=== PATIENT | female | born 1955 | race Caucasian/White ===

== ENCOUNTER → 2017-11-05 16:08 | Outpatient (CLI) | payer BC, SELFPAY ==
--- NOTE | 2017-11-05 | DI.RAD.S_ITS ---
PROCEDURE: XR KNEE RT 3V INDICATIONS: RIGHT KNEE PAIN AND SWELLING TECHNIQUE: 3 views of the knee were acquired. COMPARISON: None. FINDINGS: Bones: No fractures or dislocations. No suspicious bony lesions. Marginal bone spurs over the posterior patella and medial joint margin indicate degenerative joint disease. Soft tissues: No joint effusion. No suspicious soft tissue calcifications. IMPRESSION: Early degenerative joint disease. No acute bony abnormality. Dictated by: Clay Julian M.D. on 11/05/2017 at 16:52 Approved by: Clay Julian M.D. on 11/05/2017 at 16:54
== END ==
PROVIDERS: Family Provider Family Medicine; PCP Family Medicine; Visit Provider Family Medicine
DX: M17.11 Unilateral primary osteoarthritis, right knee (principal); M25.561 Pain in right knee
CPT/HCPCS: 73562

== ENCOUNTER → 2018-05-04 10:09 | Outpatient (CLI) | payer BC, SELFPAY ==
--- NOTE | 2018-05-04 08:30 | DI.MG.S_ITS ---
Patient Name: MICKY JIMENEZ date: 1955 Sex: F Attending Physician: Eris Indications: Date: 05/04/2018 10:19 At the request of: MELISA GOMEZ Procedure: MM screening mammo BI BILATERAL DIGITAL SCREENING MAMMOGRAM 3D/2D WITH CAD: 05/04/2018 CLINICAL: Routine screening. Comparison is made to exams dated: 03/24/2017 mammogram, 03/04/2016 mammogram, and 02/28/2015 mammogram - [facility]. There are scattered fibroglandular elements in both breasts. Current study was also evaluated with a Computer Aided Detection (CAD) system. There are benign calcifications in both breasts. No significant masses, calcifications, or other findings are seen in either breast. There has been no significant interval change. IMPRESSION: There is no mammographic evidence of malignancy. A 1 year screening mammogram is recommended. This exam was interpreted at Station ID: [id number]. NOTE: For mammograms, a report in lay terms will be sent to the patient. Approximately 15% of breast malignancies will not be visualized mammographically. In the management of a palpable breast mass, a negative mammogram must not discourage biopsy of a clinically suspicious lesion. Electronically Signed By: Chirag pelletier/janak:05/04/2018 22:37:59 letter sent: Normal Exam ACR BI-RADS Category 2: Benign Finding(s) 3342F
== END ==
PROVIDERS: Family Provider Family Medicine; PCP Family Medicine; Visit Provider Family Medicine
DX: Z12.31 Encounter for screening mammogram for malignant neoplasm of breast (principal)
CPT/HCPCS: 77063; 77067

== ENCOUNTER → 2019-05-07 09:19 | Outpatient (CLI) | payer BC, SELFPAY ==
--- NOTE | 2019-05-07 | DI.MG.S_ITS ---
BILATERAL DIGITAL SCREENING MAMMOGRAM 3D/2D WITH CAD: 05/07/2019 CLINICAL: Routine screening. Comparison is made to exams dated: 05/04/2018 mammogram, 03/24/2017 mammogram, and 03/04/2016 mammogram - . There are scattered fibroglandular elements in both breasts. Current study was also evaluated with a Computer Aided Detection (CAD) system. There are benign calcifications in both breasts. No significant masses, calcifications, or other findings are seen in either breast. There has been no significant interval change. IMPRESSION: There is no mammographic evidence of malignancy. A 1 year screening mammogram is recommended. This exam was interpreted at Station ID: [id number]. NOTE: For mammograms, a report in lay terms will be sent to the patient. Approximately 15% of breast malignancies will not be visualized mammographically. In the management of a palpable breast mass, a negative mammogram must not discourage biopsy of a clinically suspicious lesion. Electronically Signed By: Chirag pelletier/janak:05/09/2019 13:53:05 letter sent: Normal Exam ACR BI-RADS Category 2: Benign Finding(s) 3342F
== END ==
PROVIDERS: Family Provider Family Medicine; PCP Family Medicine; Visit Provider Family Medicine
DX: Z12.31 Encounter for screening mammogram for malignant neoplasm of breast (principal)
CPT/HCPCS: 77063; 77067

== ENCOUNTER 2019-12-15 16:05 | Emergency (ER) | payer BC, SELFPAY ==
[2019-12-15 16:17] VITALS: BP 126/96; PULSE 60; RESP 12; TEMP 36.2; O2SAT 96; BMI 35.7
--- NOTE | 2019-12-15 16:22 | DI.RAD.S_ITS ---
PROCEDURE: XR ANKLE RT MIN 3V INDICATIONS: right ankle pain, rolled couple days ago TECHNIQUE: 3 views of the ankle were acquired. COMPARISON: None. FINDINGS: Bones: No fractures or dislocations. Ankle mortise is normally aligned. No suspicious bony lesions. Soft tissues: No tibiotalar joint effusion. Achilles tendon appears normal. IMPRESSION: No trauma found. Dictated by: Bam Parham M.D. on 12/15/2019 at 16:38 Approved by: Bam Parham M.D. on 12/15/2019 at 16:40
--- NOTE | 2019-12-15 19:33 | ED.UPPEXIN ---
HPI - Extremity Injury (Upper) <THERESE Sanchez - Last Filed: 12/15/19 19:39> General Chief Complaint: Extremity Injury, Upper Stated Complaint: right foot pain, swelling. Fall 2 days ago Time Seen by Provider: 12/15/19 19:20 Source: patient Mode of arrival: Family Vehicle History of Present Illness HPI narrative: 63yo female presents to the ED for right foot pain for the past 3 days. Patient states she tripped over an extension cord on Thursday and fell. Patient reports the pain is worse with palpation of the area and moving in certain directions she noted some swelling and some bruising. She states she was able to bear weight immediately after the incident. She notes a bruise on the inside of her arm but denies any other injuries such as neck pain, head pain or arm pain. Patient denies any fevers, chills, dizziness, chest pain, shortness of breath, or other concerns. Related Data Home Medications Medication Instructions Recorded Confirmed METFORMIN HCL (GLUCOPHAGE) 500 mg PO QDAY #0 01/23/11 atenolol 50 mg QDAY #0 01/23/11 insulin asp prt-insulin aspart 12 units BID #0 01/23/11 [Novolog Mix 70-30FlexPen U-100] mercaptopurine 50 mg PO QDAY #0 01/23/11 sitagliptin-metformin [Janumet] 1 tab PO BID #0 01/23/11 valsartan-hydrochlorothiazide 1 tab PO QDAY #0 01/23/11 [Diovan HCT] Allergies Allergy/AdvReac Type Severity Reaction Status Date / Time erythromycin base Allergy Mild Nausea Verified 12/15/19 16:21 Review of Systems <THERESE Sanchez - Last Filed: 12/15/19 19:39> Review of Systems Narrative: REVIEW OF SYSTEMS: GENERAL: Denies fever or chills. HENT: No head trauma. CARDIOVASCULAR: No chest pain or syncope. RESPIRATORY: No shortness of breath or cough. GASTROINTESTINAL: No nausea or vomiting. GENITOURINARY: No flank pain. MUSCULOSKELETAL: Complains of right foot pain, see HPI. INTEGUMENTARY: No rash, lesions, or pruritus. NEURO: No numbness, tingling. PSYCH: No behavior or mood changes. Patient History <THERESE Sanchez - Last Filed: 12/15/19 19:39> Medical History Diabetes (Acute) Social History Smoking Status: Never smoker Smoking Status: Never smoker Substance Use Type: does not use Exam <THERESE Sancehz - Last Filed: 12/15/19 19:39> Initial Vital Signs Initial Vital Signs: Vital Signs Temperature 97.2 F L 12/15/19 16:17 Pulse Rate 60 12/15/19 16:17 Respiratory Rate 12 12/15/19 16:17 Blood Pressure 126/96 H 12/15/19 16:17 Pulse Oximetry 96 12/15/19 16:17 PHYSICAL EXAMINATION: GENERAL: Well groomed, alert, and cooperative. Answers questions promptly and appropriately. Vital signs noted. HENT: Normocephalic, atraumatic. EYES: Symmetrical, sclera white, no periorbital swelling. CARDIOVASCULAR: Regular rate. RESPIRATORY: Normal respiratory rate, trachea midline, airway patent. No stridor, nasal flaring or accessory muscle use. MUSCULOSKELETAL: Tenderness to palpation of lateral aspect of right foot, small amount of swelling, minor amount of ecchymosis. No tenderness to palpation of ankle, knee, or tibia. Normal gait and coordination. Tucker wrap was applied, patient able to bear weight without difficulty. EXTREMITIES: CMS intact. Pedal pulses 2+ and intact bilaterally. SKIN: Warm, dry, soft, appropriate color for ethnicity. No lesions, rashes, or wounds. NEURO: Alert and Oriented X 3. No sensory deficits. PSYCH: Appropriate affect and mood. <Walker Jeffers DO - Last Filed: 12/15/19 22:45> Initial Vital Signs Initial Vital Signs: Vital Signs Temperature 97.2 F L 12/15/19 16:17 Pulse Rate 60 12/15/19 16:17 Respiratory Rate 12 12/15/19 16:17 Blood Pressure 126/96 H 12/15/19 16:17 Pulse Oximetry 96 12/15/19 16:17 Course <THERESE Sanchez - Last Filed: 12/15/19 19:39> Orders Ordered: ED Orders 12/15/19 16:22 XR ankle RT min 3V Stat Vital Signs Vital signs: Vital Signs - 8 hr 12/15/19 16:17 12/15/19 19:40 Temperature 97.2 F L Pulse Rate 60 57 L Respiratory Rate 12 16 Blood Pressure 126/96 H 150/83 H Pulse Oximetry 96 97 <Walker Jeffers DO - Last Filed: 12/15/19 22:45> Orders Ordered: ED Orders 12/15/19 16:22 XR ankle RT min 3V Stat Vital Signs Vital signs: Vital Signs - 8 hr 12/15/19 16:17 12/15/19 19:40 Temperature 97.2 F L Pulse Rate 60 57 L Respiratory Rate 12 16 Blood Pressure 126/96 H 150/83 H Pulse Oximetry 96 97 MDM - Extremity Injury (Upper) <THERESE Sanchez - Last Filed: 12/15/19 19:39> Medical Records Attestation: I reviewed the patient's medical records. Lab Data Attestation: I reviewed the patient's lab results. Imaging Data Extremity x-ray #1: Radiologist's Impression: [address] [id number] XRay Report Signed Patient: Sully Sagastume GMR#: [id number] : 1955cct:[id number] Age/Sex: 63 / FDate of Service: 12/15/19 Loc: ED Accession Number: [id number] Procedure: XR ankle RT min 3V Ordering Provider: Farhad Cramer MD PROCEDURE: XR ANKLE RT MIN 3V INDICATIONS: right ankle pain, rolled couple days ago TECHNIQUE: 3 views of the ankle were acquired. COMPARISON: None. FINDINGS: Bones: No fractures or dislocations. Ankle mortise is normally aligned. No suspicious bony lesions. Soft tissues: No tibiotalar joint effusion. Achilles tendon appears normal. IMPRESSION: No trauma found. Dictated by: Bam Parham M.D. on 12/15/2019 at 16:38 Approved by: Bam Parham M.D. on 12/15/2019 at 16:40 MDM Narrative Medical decision making narrative: 63-year-old female presents emergency department for right foot pain after fall. Most likely sprain versus contusion. Tucker wrap was given. X-ray negative for fractures. Patient was encouraged to use RICE. Return precautions given for new or worsening symptoms. Patient agreed to plan of care verbalized understanding. Discharge Plan Departure Patient Disposition: Home Clinical Impression: Acute foot pain Qualifiers: Laterality: right Qualified Code(s): M79.671 - Pain in right foot Discharge Date/Time: 12/15/19 19:41 Instructions: DI for Foot Pain Activity Restrictions/Additional Instructions: Thank you for entrusting me with your care today. As discussed, your x-rays negative for any fractures. I suspect your pain is most likely caused by a sprain. Use the Tucker wrap as needed for the next few days to help with swelling and extra support. Elevate your leg as much as possible, apply ice when needed. Follow-up with your primary care provider in 1-2 weeks for further evaluation. Prescriptions: No Action atenolol 25 MG tablet 50 mg QDAY Qty: 0 RF: 0 insulin asp prt-insulin aspart [Novolog Mix 70-30FlexPen U-100] 100 UNIT/1 ML insulin pen 12 units BID Qty: 0 RF: 0 METFORMIN HCL (GLUCOPHAGE) 500 mg PO QDAY Qty: 0 RF: 0 mercaptopurine 50 MG tablet 50 mg PO QDAY Qty: 0 RF: 0 valsartan-hydrochlorothiazide [Diovan HCT] 160 MG/25 MG tablet 1 tab PO QDAY Qty: 0 RF: 0 sitagliptin-metformin [Janumet] 50 MG/1,000 MG tablet 1 tab PO BID Qty: 0 RF: 0 Referrals: Walker Schulte MD [Primary Care Provider] - <Walker Jeffers DO - Last Filed: 12/15/19 22:45> [facility]: Dr Jeffers Co-Sign Statement: I was available for consultation during this patient's emergency department visit. This chart is signed by myself for administrative purposes only. I did not have direct contact with this patient during this visit. They were seen independently by the APC.
[2019-12-15 19:40] VITALS: BP 150/83; PULSE 57; RESP 16; O2SAT 97
--- NOTE | 2019-12-15 19:40 | PC.NURSE ---
Tucker wrap applied to patients left ankle. Capillary refill check, less then 3 seconds.
== END 2019-12-15 19:41 | disposition home or self-care (01) ==
PROVIDERS: Emergency Provider Nurse Practitioner; Family Provider Family Medicine; PCP Family Medicine; Referring Provider Family Medicine
DX: M79.671 Pain in right foot (principal); W01.0XXA Fall on same level from slipping, tripping and stumbling without subsequent striking against object, initial encounter
CPT/HCPCS: 73610; 99283

== ENCOUNTER → 2020-05-08 11:40 | Outpatient (CLI) | payer BC, SELFPAY ==
--- NOTE | 2020-05-08 | DI.MG.S_ITS ---
BILATERAL DIGITAL SCREENING MAMMOGRAM 3D/2D WITH CAD: 05/08/2020 CLINICAL: Routine screening. Comparison is made to exams dated: 05/07/2019 mammogram, 05/04/2018 mammogram, and 03/24/2017 mammogram - [facility]. There are scattered fibroglandular elements in both breasts. Current study was also evaluated with a Computer Aided Detection (CAD) system. There are benign calcifications in both breasts. No significant masses, calcifications, or other findings are seen in either breast. There has been no significant interval change. IMPRESSION: BENIGN There is no mammographic evidence of malignancy. A 1 year screening mammogram is recommended. This exam was interpreted at Station ID: [id number]. NOTE: For mammograms, a report in lay terms will be sent to the patient. Approximately 15% of breast malignancies will not be visualized mammographically. In the management of a palpable breast mass, a negative mammogram must not discourage biopsy of a clinically suspicious lesion. Electronically Signed By: Simon ordonez/janak:05/08/2020 14:16:27 letter sent: Normal Exam ACR BI-RADS Category 2: Benign Finding(s) 3342F
== END ==
PROVIDERS: PCP Family Medicine; Referring Provider Family Medicine; Visit Provider Family Medicine
DX: Z12.31 Encounter for screening mammogram for malignant neoplasm of breast (principal)
CPT/HCPCS: 77063; 77067

== ENCOUNTER → 2020-07-11 14:56 | Outpatient (CLI) | payer BC, SELFPAY ==
--- NOTE | 2020-07-11 16:04 | DIET.PN ---
Diabetes Intake: Initial Assessment Assess: Ms. Sagastume is a 64 yof referred for long standing hx of type 2 diabetes with concreter use of insulin. She admits she has been non-compliant in the past with monitoring and dietary recommendations. She was previously using the freestyle davian CGM until it . She has requested a glucometer with instructions to test 2x daily. She has started making improvement to her dietary behaviors and recently purchased an elliptical. Labs: Per pt report: A1c: 7.5 Meds: Janumet BID; Humalog 34 u am/20 u pm; Lantus 20 u Pm Diet: per 24 hr recall: B: scrambled, eggs, avocado; previously-bagel, cream cheese, diet coke L: fruit protein shake; apple w/ pb D: steak, salad; previously- spaghetti, beef straughonaff Sn: popcorn, cookies, cereal Wt: 245lb Ht: 68in BMI: 37.39 BP: 130/84 DX: Altered nutrition related laboratory values related to impaired glucose metabolism, lack of previous exposure to nutrition information as evidenced by pt report, diagnosis of diabetes, previous diet high in refined carbohydrates. Intervention: 1. Completed intake assessment. Discussed barriers to care. 2. Discussed pathophysiology of diabetes. Reviewed A1c and its correlation to blood glucose numbers. Discussed recommended BG ranges. 3. Discussed importance of self-monitoring, how often, and when to check. 4. Reviewed hyper/hypoglycemia and treatment. 5. Reviewed safe disposal of equipment (strip/lancets/insulin needles). 6. Created SMART goals for pt self-care and success. 7. Discussed program curriculum outline and class needs based on individual goals. SMART Goals: 1. Pt goal A1c 6.5-7.0 w/ goal weight 200lb in the next 6mo through improved dietary changes including carb counting, portion control, healthy snacking, and regular exercise. Monitor/Evaluate: Pt will attend full DSME program. Basic Nutrition class scheduled for Jul 24.
== END ==
PROVIDERS: Referring Provider Internal Medicine; Visit Provider Internal Medicine
DX: E11.9 Type 2 diabetes mellitus without complications (principal); Z79.4 Long term (current) use of insulin
CPT/HCPCS: G0108

== ENCOUNTER → 2020-07-24 09:50 | Outpatient (CLI) | payer BC, SELFPAY ==
--- NOTE | 2020-07-24 12:13 | DIET.PN ---
Diabetes Exercise/Lifestyle change: 1. Importance of exercise 2. FITT (frequency, intensity, time, type) 3. Strength training tips and guidelines 4. Glucose monitoring/ranges before and after a. Carbohydrate needs based on glucose ranges and duration/intensity of exercise b. Rule of 15 5. Proper foot attire 6. Developing strategies for behavior change 7. SMART Goal Setting 8. Home exercise routine demonstration (as a class)
== END ==
PROVIDERS: Referring Provider Internal Medicine; Visit Provider Internal Medicine
DX: E11.9 Type 2 diabetes mellitus without complications (principal); Z71.3 Dietary counseling and surveillance
CPT/HCPCS: G0109

== ENCOUNTER → 2020-07-31 09:55 | Outpatient (CLI) | payer BC, SELFPAY ==
--- NOTE | 2020-07-31 11:18 | DIET.PN ---
Diabetes: Healthy Eating 1 Intervention: ? Discussed pathophysiology of diabetes and impact of nutrition/diet on blood sugar control.? Discussed fed versus non-fed state.?? ? Reviewed importance of Balance, Variety, and Moderation. ? Discussed the effect of carbohydrates/protein/fat on blood sugar control.? ? Stressed importance of consistent carbohydrate intake at each meal and provided instructions for recommended servings/portions of carbohydrates/protein per meal. Provided educational material. ? Reviewed carbohydrate counting and measuring carbohydrate content via serving sizes and reading nutrition labels.? Provided handouts.?? ? Discussed the difference between simple versus complex carbohydrates and the effect of fiber on blood sugar control.? Discussed various methods to increase fiber content in diet. ? Discussed the plate method for creating more carbohydrate conscious balanced meals. ? Stressed importance of meal timing and not going >4-5 hours between meals. Encouraged adding protein to evening snack to support glucose control overnight. ? Discussed importance of making dietary habits part of lifestyle change.
== END ==
PROVIDERS: PCP Internal Medicine; Referring Provider Internal Medicine; Visit Provider Internal Medicine
DX: E11.9 Type 2 diabetes mellitus without complications (principal); Z71.3 Dietary counseling and surveillance
CPT/HCPCS: G0109

== ENCOUNTER → 2020-08-01 13:47 | Outpatient (CLI) | payer BC, SELFPAY ==
[2020-08-01] MEDS: COVID-19 VACC #1, MRNA(MOD) 100 MCG/0.5 ML VIAL IM (13:55)
== END ==
PROVIDERS: PCP Internal Medicine; Visit Provider Internal Medicine
DX: Z23 Encounter for immunization (principal)
CPT/HCPCS: 0011A; 91301

== ENCOUNTER → 2020-08-07 10:01 | Outpatient (CLI) | payer BC, SELFPAY ==
--- NOTE | 2020-08-07 11:50 | DIET.PN ---
Diabetes: Healthy Eating 2 Intervention: Fats effects on glucose, weight, heart disease, cholesterol Sat Vs Unsat Protein- animal and plant based options Low, med, high fat meats Sugar substitutes Sodium Health claims Grocery shopping guidelines Eating away from home Alcohol Sick day guidelines Ketone Testing
== END ==
PROVIDERS: PCP Internal Medicine; Referring Provider Internal Medicine; Visit Provider Internal Medicine
DX: E11.9 Type 2 diabetes mellitus without complications (principal); Z71.3 Dietary counseling and surveillance
CPT/HCPCS: G0109

== ENCOUNTER → 2020-08-22 14:52 | Outpatient (CLI) | payer BC, SELFPAY ==
--- NOTE | 2020-08-22 16:11 | DIET.PN ---
DIABETES Nutrition Initial Assessment:? ASSESS:?? Ms. Sagastume is a 64 yof??referred for type 2 diabetes seen as part of DSME program. She has made significant changes to eating habits including eliminating most sugar, starches, and trans fats. She has been keeping a food and glucose log for several weeks. She is concerned with frequent afternoon hypo?s ranging between 40-60. She reduced her morning Humalog from 32 units to 30 units. She has been eating less and exercising which has certainly contributed to the need for insulin modification. ??? LABS: Per pt report:? no new labs ? MEDS:?? janumet BID; Humalog 30 u am/20 pm; latus 20 u pm ? DIET: B: eggs, avocado L: fruit protein shake; apple w/ pb D: steak salad Sn: rice cake w/ pb Eating Out: rarely Changes in Appetite: na Nutrition Supplements: na ? Weight: 245lb Height: 68in BMI: ? 37.4 ? Exercise:? walking daily NUTRITION DX 1. Altered Nutrition related labs related to impaired glucose metabolism, lack of previous exposure to accurate nutrition information as evidenced by pt report, dx of diabetes, previous diet high in refined carbohydrates.? INTERVENTION(s): 1. Reviewed pathophysiology of diabetes and impact of nutrition/diet on blood sugar control.? Discussed fed versus non-fed state.?? 2. Discussed the effect of carbohydrates/protein/fat on blood sugar control.? Stressed importance of consistent carbohydrate intake at each meal and provided instructions for recommended servings/portions of carbohydrates/protein per meal. Provided pt with educational material. 3. Reviewed carbohydrate counting and measuring carbohydrate content via serving sizes and reading nutrition labels.? Provided handouts.?? 4. Discussed the difference between simple versus complex carbohydrates and the effect of fiber on blood sugar control.? Discussed various methods to increase fiber content in diet. 5. Stressed importance of meal timing and not going >4-5 hours between meals. Encouraged adding protein to evening snack to support glucose control overnight. Patient agreeable. 6. Discussed healthy weight loss goals of 1-2lbs per week through diet and exercise.? Pt agreeable to walking at least 30 minutes daily. 7. Recommend monitoring fasting and alternating 2 hr PP mealtime glucose. 8. Discussed med management. Recommend pt reduce Humalog to 28 u am and continue to monitor afternoon glucose closely. Will re-evaluate in a few weeks. MONITOR/EVALUATE: Anticipate good compliance.? Nutrition follow-up scheduled for 1 month.
== END ==
PROVIDERS: PCP Family Medicine; Referring Provider Internal Medicine; Visit Provider Internal Medicine
DX: E11.9 Type 2 diabetes mellitus without complications (principal)
CPT/HCPCS: G0109

== ENCOUNTER → 2020-08-29 13:48 | Outpatient (CLI) | payer BC, SELFPAY ==
[2020-08-29] MEDS: COVID-19 VACC #2, MRNA(MOD) 100 MCG/0.5 ML VIAL IM (13:49)
== END ==
PROVIDERS: PCP Family Medicine; Visit Provider Internal Medicine
DX: Z23 Encounter for immunization (principal)
CPT/HCPCS: 0012A; 91301

== ENCOUNTER → 2021-01-09 12:09 | Outpatient (CLI) | payer BC, SELFPAY ==
--- NOTE | 2021-01-09 | DI.US.S_ITS ---
PROCEDURE: US PELVIC COMPLETE INDICATIONS: PMB TECHNIQUE: Real-time scanning was performed of the pelvic organs, with image documentation. Additional endovaginal scanning was necessary due to incomplete visualization of the adnexal and endometrial structures by transabdominal scanning. COMPARISON: None. FINDINGS: Uterus: Uterus is normal in size at 7.1 x 3.5 x 5.9 cm. The endometrium measures 8.0 mm in combined thickness. No endometrial mass or fluid is seen. No discrete uterine fibroid. Ovaries: Right ovary measures 2.5 x 1.4 x 2.1 cm in size. Left ovary measures 2.2 x 1 x 1.7 cm in size. No solid appearing ovarian lesion is seen. Other: No pathologic free abdominal or pelvic fluid. IMPRESSION: 1. Thickened endometrium suggestive of endometrial hyperplasia. 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 2. Normal appearing bilateral ovaries. Dictated by: Jonas Johnson M.D. on 01/09/2021 at 14:57 Approved by: Jonas oJhnson M.D. on 01/09/2021 at 14:59
== END ==
PROVIDERS: PCP Family Medicine; Referring Provider Family Medicine; Visit Provider Family Medicine
DX: N92.4 Excessive bleeding in the premenopausal period (principal)
CPT/HCPCS: 76830; 76856

== ENCOUNTER → 2021-05-09 11:44 | Outpatient (CLI) | payer BC, SELFPAY ==
--- NOTE | 2021-05-09 11:45 | DI.MG.S_ITS ---
BILATERAL DIGITAL SCREENING MAMMOGRAM 3D/2D WITH CAD: 05/09/2021 CLINICAL: Routine screening. Comparison is made to exams dated: 05/08/2020 mammogram, 05/07/2019 mammogram, and 05/04/2018 mammogram - [facility]. There are scattered fibroglandular elements in both breasts. Current study was also evaluated with a Computer Aided Detection (CAD) system. There is an oval equal density focal asymmetry with an indistinct and circumscribed margin in the right breast central to the nipple middle depth. No other significant masses, calcifications, or other findings are seen in either breast. IMPRESSION: INCOMPLETE: NEEDS ADDITIONAL IMAGING EVALUATION The oval equal density focal asymmetry in the right breast is indeterminate. Mediolateral and spot compression views as well as additional views with possible ultrasound are recommended. This exam was interpreted at Station ID: [id number]. NOTE: For mammograms, a report in lay terms will be sent to the patient. Approximately 15% of breast malignancies will not be visualized mammographically. In the management of a palpable breast mass, a negative mammogram must not discourage biopsy of a clinically suspicious lesion. Electronically Signed By: Benny avilez/janak:05/09/2021 16:04:47 letter sent: Additional Imaging Needed ACR BI-RADS Category 0: Incomplete 3340F
== END ==
PROVIDERS: PCP Family Medicine; Referring Provider Family Medicine; Visit Provider Family Medicine
DX: Z12.31 Encounter for screening mammogram for malignant neoplasm of breast (principal); N64.89 Other specified disorders of breast
CPT/HCPCS: 77063; 77067

== ENCOUNTER → 2021-06-05 13:19 | Outpatient (CLI) | payer BC, SELFPAY ==
--- NOTE | 2021-06-05 | DI.US.S_ITS ---
LIMITED ULTRASOUND OF RIGHT BREAST: 06/05/2021 CLINICAL: Patient returns today to evaluate a focal asymmetry in the right breast. Comparison is made to exams dated: 05/09/2021 mammogram, 05/08/2020 mammogram, 05/07/2019 mammogram, 05/04/2018 mammogram, and 06/05/2021 mammogram - [facility]. Color flow ultrasound of the right breast 12 o'clock region was performed. Ybarra scale images of the real-time examination were reviewed. There is a benign 0.4 cm x 0.3 cm x 0.3 cm round cyst with a smooth internal wall in the right breast at 12 o'clock middle depth 2 cm from the nipple. This round cyst is anechoic with posterior acoustic enhancement. This correlates with mammography findings. IMPRESSION: BENIGN There is no sonographic evidence of malignancy. The 0.4 cm x 0.3 cm x 0.3 cm round cyst in the right breast is consistent with a simple cyst and is benign. Return to annual mammogram screening schedule is recommended. This exam was interpreted at Station ID: [id number]. Electronically Signed By: Simon ordonez/janak:06/05/2021 14:46:41 letter sent: Normal Exam Ultrasound BI-RADS: 2 Benign
--- NOTE | 2021-06-05 | DI.MG.S_ITS ---
UNILATERAL RIGHT DIGITAL DIAGNOSTIC MAMMOGRAM 3D/2D WITH ADDITIONAL VIEWS: 06/05/2021 CLINICAL: Additional evaluation requested from prior study. Comparison is made to exams dated: 05/09/2021 mammogram, 05/08/2020 mammogram, and 05/07/2019 mammogram - [facility]. There are scattered fibroglandular elements in right breast. There is a 0.3 cm oval equal density focal asymmetry with a circumscribed margin in the right breast at 12 o'clock middle depth. This is seen in additional views. No other significant masses or calcifications are seen in the breast. IMPRESSION: INCOMPLETE: NEEDS ADDITIONAL IMAGING EVALUATION The 0.3 cm oval equal density focal asymmetry in the right breast is indeterminate. An ultrasound is recommended. This exam was interpreted at Station ID: [id number]. NOTE: For mammograms, a report in lay terms will be sent to the patient. Approximately 15% of breast malignancies will not be visualized mammographically. In the management of a palpable breast mass, a negative mammogram must not discourage biopsy of a clinically suspicious lesion. Electronically Signed By: Simon ordonez/janak:06/05/2021 14:45:12 ACR BI-RADS Category 0: Incomplete 3340F
== END ==
PROVIDERS: PCP Family Medicine; Referring Provider Family Medicine; Visit Provider Family Medicine
DX: R92.8 Other abnormal and inconclusive findings on diagnostic imaging of breast (principal); N60.01 Solitary cyst of right breast
CPT/HCPCS: 76642; 77065; G0279

== ENCOUNTER → 2022-05-09 08:13 | Outpatient (CLI) | payer BC, SELFPAY ==
--- NOTE | 2022-05-09 | DI.MG.S_ITS ---
BILATERAL DIGITAL SCREENING MAMMOGRAM 3D/2D WITH CAD: 05/09/2022 CLINICAL: Routine screening. Comparison is made to exams dated: 06/05/2021 mammogram, 05/09/2021 mammogram, 05/08/2020 mammogram, 05/07/2019 mammogram, 06/05/2021 ultrasound, and 05/04/2018 mammogram - [facility]. There are scattered areas of fibroglandular density in both breasts (category b / 25%-50% glandular tissue). Current study was also evaluated with a Computer Aided Detection (CAD) system. No significant masses, calcifications, or other findings are seen in either breast. There has been no significant interval change. IMPRESSION: NEGATIVE There is no mammographic evidence of malignancy. A 1 year screening mammogram is recommended. Based on the Tyrer Cuzick model (a risk assessment model) the patient's lifetime risk is 5.1% and her 10 year risk is 2.3%. According to the ACR, ACS, and NCCN guidelines, an annual breast MRI exam along with mammogram is recommended if the patient's lifetime risk is 20% or greater. This exam was interpreted at Station ID: [id number]. NOTE: For mammograms, a report in lay terms will be sent to the patient. Approximately 15% of breast malignancies will not be visualized mammographically. In the management of a palpable breast mass, a negative mammogram must not discourage biopsy of a clinically suspicious lesion. Electronically Signed By: Rolando Escoto M.D., jr/janak:05/09/2022 13:56:19 letter sent: Normal Exam ACR BI-RADS Category 1: Negative 3341F
== END ==
PROVIDERS: PCP Family Medicine; Referring Provider Family Medicine; Visit Provider Family Medicine
DX: Z12.31 Encounter for screening mammogram for malignant neoplasm of breast (principal)
CPT/HCPCS: 77063; 77067

== ENCOUNTER → 2023-05-22 08:08 | Outpatient (CLI) | payer MEDICARE, OTHER, SELFPAY ==
--- NOTE | 2023-05-22 08:11 | DI.MG.S_ITS ---
BILATERAL DIGITAL SCREENING MAMMOGRAM 3D/2D WITH CAD: 05/22/2023 CLINICAL: Routine screening. Comparison is made to exams dated: 05/09/2022 mammogram, 06/05/2021 mammogram, 05/09/2021 mammogram, and 05/08/2020 mammogram - [facility]. There are scattered areas of fibroglandular density in both breasts (category b / 25%-50% glandular tissue). Current study was also evaluated with a Computer Aided Detection (CAD) system. No significant masses, calcifications, or other findings are seen in either breast. There has been no significant interval change. IMPRESSION: NEGATIVE There is no mammographic evidence of malignancy. A 1 year screening mammogram is recommended. Based on the Tyrer Cuzick model (a risk assessment model) the patient's lifetime risk is 4.9% and her 10 year risk is 2.3%. According to the ACR, ACS, and NCCN guidelines, an annual breast MRI exam along with mammogram is recommended if the patient's lifetime risk is 20% or greater. This exam was interpreted at Station ID: [id number]. NOTE: For mammograms, a report in lay terms will be sent to the patient. Approximately 15% of breast malignancies will not be visualized mammographically. In the management of a palpable breast mass, a negative mammogram must not discourage biopsy of a clinically suspicious lesion. Electronically Signed By: Chirag pelletier/janak:05/22/2023 17:12:05 letter sent: Normal Exam ACR BI-RADS Category 1: Negative 3341F
== END ==
PROVIDERS: PCP Family Medicine; Referring Provider Family Medicine; Visit Provider Family Medicine
DX: Z12.31 Encounter for screening mammogram for malignant neoplasm of breast (principal); R92.323 Mammographic fibroglandular density, bilateral breasts
CPT/HCPCS: 77063; 77067

== ENCOUNTER → 2024-04-08 08:41 | Outpatient (CLI) | payer MEDICARE, OTHER, SELFPAY ==
--- NOTE | 2024-04-08 08:42 | DI.CT.S_ITS ---
PROCEDURE: CT CHEST WO CON INDICATIONS: lung nodule follow up TECHNIQUE: Noncontrast 2.0-2.5 mm thick sections acquired from the pulmonary apices to the posterior costophrenic angles. 7 mm thick axial MIP and 5 mm coronal and sagittal reformats were then acquired. For radiation dose reduction, the following was used: automated exposure control, adjustment of mA and/or kV according to patient size. COMPARISON: Outside Facility, RG, CT CALCIUM SCORING, 03/14/2024, 16:54. FINDINGS: Image quality: Diagnostic. Thyroid: Within normal limits. Cardiac: Heart size within normal limits. No pericardial effusion. Moderate coronary artery calcifications. Aorta: Thoracic aortic diameter within normal limits. Pulmonary Artery: Main pulmonary artery diameter within normal limits. Lungs: Re-identified 1.2 cm round juxtapleural (mediastinal) solid , lobulated nodule in the medial segment of the right middle lobe (3/155; 4/32). No focal lung consolidation or suspicious pulmonary nodules. Pleura: No pneumothorax or pleural effusion. Airways: The trachea and mainstem bronchi are patent. Lymph Nodes: No mediastinal, hilar, or axillary lymphadenopathy. Esophagus: Within normal limits. Bones: No acute osseous abnormality. Upper Abdomen: Cholelithiasis. IMPRESSION: 1. Unchanged lobulated and solid 1.2 cm right middle lobe mediastinal nodule. A repeat CT chest with contrast in 3 months would be recommended. 2. Cholelithiasis. Fleischner Society criteria for SOLID lung nodule followup. Nodule size (mm)Low-risk patientHigh-risk patient<6 (single or multiple)No routine followup.Optional CT at 12 months. 6-8 (single or multiple)CT at 6-12 months, then optional CT at 18-24 mo.CT at 6-12 months, then CT at 18-24 months. >8 (single)CT at 3 months, PET-CT, or biopsy. Same as for low-risk pts. >8 (multiple)CT at 3-6 months, then optional CT at 18-24 mo.CT at 3-6 months, then CT at 18-24 months. Fleischner Society criteria for SUB-SOLID lung nodule followup. Solitary pure ground-glass nodules<6 mm (ground glass or part solid)No followup needed. 6 mm or larger (ground glass)CT at 6-12 months to confirm persistence, then CT every 2 years until 5 years.6 mm or larger (part solid)CT at 3-6 months to confirm persistence, then annual CT until 5 years if unchanged and solid component remains <6 mm. Multiple sub-solid nodules<6 mmCT at 3-6 months, then CT consider at 2 & 4 years for high risk patients. [address] at 3-6 months. Subsequent management based on most suspicious lesions. Recommendations do not apply to lung cancer screening, patients with immunosuppression, or patients with known primary cancer. Dictated by: Bob Abrams M.D. on 04/11/2024 at 13:35 Approved by: Bob Abrams M.D. on 04/11/2024 at 13:50
== END ==
PROVIDERS: PCP Family Medicine; Referring Provider Family Medicine; Visit Provider Family Medicine
DX: R91.1 Solitary pulmonary nodule (principal); K80.20 Calculus of gallbladder without cholecystitis without obstruction; I25.10 Atherosclerotic heart disease of native coronary artery without angina pectoris
CPT/HCPCS: 71250

== ENCOUNTER → 2024-05-26 07:40 | Outpatient (CLI) | payer MEDICARE, OTHER, SELFPAY ==
--- NOTE | 2024-05-26 | DI.MG.S_ITS ---
BILATERAL DIGITAL SCREENING MAMMOGRAM 3D/2D WITH CAD: 05/26/2024 CLINICAL: Routine screening. Comparison is made to exams dated: 05/22/2023 mammogram, 05/09/2022 mammogram, and 05/09/2021 mammogram - [facility]. There are scattered areas of fibroglandular density (category b / 25%-50% glandular tissue). Current study was also evaluated with a Computer Aided Detection (CAD) system. There is a possible irregular asymmetry in the left breast posterior depth central to the nipple seen on the craniocaudal view only. This is more prominent. No other significant masses, calcifications, or other findings are seen in either breast. IMPRESSION: INCOMPLETE: NEED ADDITIONAL IMAGING EVALUATION The possible irregular asymmetry in the left breast has a differential diagnosis of fibroglandular tissue and is indeterminate. Additional views with possible ultrasound are recommended. Based on the Tyrer Cuzick model (a risk assessment model) the patient's lifetime risk is 4.7% and her 10 year risk is 2.3%. According to the ACR, ACS, and NCCN guidelines, an annual breast MRI exam along with mammogram is recommended if the patient's lifetime risk is 20% or greater. This exam was interpreted at Station ID: [id number]. NOTE: For mammograms, a report in lay terms will be sent to the patient. Approximately 15% of breast malignancies will not be visualized mammographically. In the management of a palpable breast mass, a negative mammogram must not discourage biopsy of a clinically suspicious lesion. Electronically Signed By: Joao Bailey M.D. slc/:05/27/2024 16:18:37 letter sent: Additional Imaging Needed ACR BI-RADS Category 0: Incomplete: Need Additional Imaging Evaluation
== END ==
PROVIDERS: PCP Family Medicine; Referring Provider Family Medicine; Visit Provider Family Medicine
DX: Z12.31 Encounter for screening mammogram for malignant neoplasm of breast (principal)
CPT/HCPCS: 77063; 77067

== ENCOUNTER → 2024-06-21 08:43 | Outpatient (CLI) | payer MEDICARE, OTHER, SELFPAY ==
--- NOTE | 2024-06-21 08:44 | DI.MG.S_ITS ---
UNILATERAL LEFT DIGITAL DIAGNOSTIC MAMMOGRAM 3D/2D WITH ADDITIONAL VIEWS: 06/21/2024 CLINICAL: Additional evaluation requested from prior study. Comparison is made to exams dated: 05/26/2024 mammogram, 05/22/2023 mammogram, and 05/09/2022 mammogram - [facility]. There are scattered areas of fibroglandular density (category b / 25%-50% glandular tissue). There is a possible irregular asymmetry in the left breast posterior depth central to the nipple seen on the craniocaudal view only. This is not seen in additional views. No other significant masses or calcifications are seen in the breast. IMPRESSION: INCOMPLETE: NEED ADDITIONAL IMAGING EVALUATION The possible irregular asymmetry in the left breast is indeterminate. A targeted ultrasound is recommended and will immediately follow. Based on the Tyrer Cuzick model (a risk assessment model) the patient's lifetime risk is 4.7% and her 10 year risk is 2.3%. According to the ACR, ACS, and NCCN guidelines, an annual breast MRI exam along with mammogram is recommended if the patient's lifetime risk is 20% or greater. This exam was interpreted at Station ID: [id number]. NOTE: For mammograms, a report in lay terms will be sent to the patient. Approximately 15% of breast malignancies will not be visualized mammographically. In the management of a palpable breast mass, a negative mammogram must not discourage biopsy of a clinically suspicious lesion. Electronically Signed By: Joao Bailey M.D. slc/:06/21/2024 10:50:08 letter sent: Additional Imaging Needed ACR BI-RADS Category 0: Incomplete: Need Additional Imaging Evaluation
--- NOTE | 2024-06-21 08:45 | DI.US.S_ITS ---
LIMITED ULTRASOUND OF LEFT BREAST: 06/21/2024 CLINICAL: Patient returns today to evaluate a focal asymmetry in the left breast. Comparison is made to exams dated: 06/21/2024 mammogram, 05/26/2024 mammogram, 05/22/2023 mammogram, and 05/09/2022 mammogram - [facility]. Color flow and real-time ultrasound of the left breast 12 o'clock region were performed. Ybarra scale images of the real-time examination were reviewed. No mass or significant cyst. There is a benign 0.4 cm x 0.4 cm x 0.2 cm simple cyst in the left breast at 12 o'clock posterior depth 6 cm from the nipple. This simple cyst is anechoic. Color flow imaging demonstrates that there is no vascularity present. IMPRESSION: BENIGN There is no sonographic evidence of malignancy. No mass. The 0.4 cm simple cyst in the left breast is benign. Exam findings were conveyed to the patient. A 1 year screening mammogram is recommended. This exam was interpreted at Station ID: [id number]. Electronically Signed By: Joao Bailey M.D. [facility] [place]/:06/21/2024 11:05:43 letter sent: Normal Exam ACR BI-RADS Category 2: Benign
== END ==
PROVIDERS: PCP Family Medicine; Referring Provider Family Medicine; Visit Provider Family Medicine
DX: R92.8 Other abnormal and inconclusive findings on diagnostic imaging of breast (principal); N60.02 Solitary cyst of left breast
CPT/HCPCS: 76642; 77065; G0279

== ENCOUNTER → 2024-07-15 10:08 | Outpatient (CLI) | payer MEDICARE, OTHER, SELFPAY ==
--- NOTE | 2024-07-15 10:12 | DI.CT.S_ITS ---
PROCEDURE: CT CHEST WO CON INDICATIONS: pulmonary nodule TECHNIQUE: Noncontrast 2.0-2.5 mm thick sections acquired from the pulmonary apices to the posterior costophrenic angles. 7 mm thick axial MIP and 5 mm coronal and sagittal reformats were then acquired. For radiation dose reduction, the following was used: automated exposure control, adjustment of mA and/or kV according to patient size. COMPARISON: Outside Facility, RG, CT CALCIUM SCORING, 03/14/2024, 16:54. [facility], CT, CT CHEST WO CON, 04/08/2024, 9:42. FINDINGS: Image quality: Diagnostic. Lower Neck: No enlarged lymph nodes. Thyroid: No thyroid nodules which require sonographic follow up, per consensus guidelines. Axillae: No enlarged lymph nodes. Chest Wall: Unremarkable. Bones: Unremarkable. Lungs and Pleura: No pneumothorax or pleural effusions. No consolidation or new suspicious nodules. A previously present solid-appearing nodule abutting the right mediastinal border near the pericardium measures up to 1.3 x 1.5 cm in maximal dimensions, not significantly changed from the earliest available CT scanning showing this nodule dated 03/14/24. Heart: Heart size is normal. No pericardial effusion. Thoracic Vessels: The aorta and pulmonary arteries demonstrate normal size. Mediastinum and Xochitl: No enlarged lymph nodes. Esophagus: No wall thickening. No hiatal hernia. Upper Abdomen: Visualized upper abdomen solid organs and bowel loops appear normal. IMPRESSION: Stable appearance of a 1.5 cm solid nodule right upper lobe medially, and this represents 4 months of follow-up. This lesion abuts the peripheral margin of the right heart area, and is of a size that could be accurately assessed utilizing nuclear medicine PET-CT scanning. That would represent the preferred follow-up given size and apposition to the cardiac pleural margin despite absence of enlargement over the prior 4 months. Thoracic surgical oncologist consultation at this time may be warranted. Fleischner Society criteria for SOLID lung nodule followup. Nodule size (mm)Low-risk patientHigh-risk patient<6 (single or multiple)No routine followup.Optional CT at 12 months. 6-8 (single or multiple)CT at 6-12 months, then optional CT at 18-24 mo.CT at 6-12 months, then CT at 18-24 months. >8 (single)CT at 3 months, PET-CT, or biopsy. Same as for low-risk pts. >8 (multiple)CT at 3-6 months, then optional CT at 18-24 mo.CT at 3-6 months, then CT at 18-24 months. Fleischner Society criteria for SUB-SOLID lung nodule followup. Solitary pure ground-glass nodules<6 mm (ground glass or part solid)No followup needed. 6 mm or larger (ground glass)CT at 6-12 months to confirm persistence, then CT every 2 years until 5 years.6 mm or larger (part solid)CT at 3-6 months to confirm persistence, then annual CT until 5 years if unchanged and solid component remains <6 mm. Multiple sub-solid nodules<6 mmCT at 3-6 months, then CT consider at 2 & 4 years for high risk patients. [address] at 3-6 months. Subsequent management based on most suspicious lesions. Recommendations do not apply to lung cancer screening, patients with immunosuppression, or patients with known primary cancer. Dictated by: Bam Parham M.D. on 07/15/2024 at 14:29 Approved by: Bam Parham M.D. on 07/15/2024 at 14:41
== END ==
PROVIDERS: PCP Family Medicine; Referring Provider Family Medicine; Visit Provider Family Medicine
DX: R91.1 Solitary pulmonary nodule (principal)
CPT/HCPCS: 71250

== ENCOUNTER → 2025-04-14 09:49 | Outpatient (CLI) | payer MEDICARE, OTHER, SELFPAY | PROVIDERS: PCP Family Medicine; Referring Provider Nurse Practitioner Family; Visit Provider Nurse Practitioner Family | DX: R05.1 Acute cough (principal) | CPT/HCPCS: 87077; 87086; 87186 ==